=== PATIENT | female | born 1980 | race Caucasian/White ===

== ENCOUNTER 2017-04-05 18:46 | Emergency (ER) | payer SELFPAY ==
[~2017-04-05] VITALS: Ht 144.8 cm; Wt 45.4 kg
--- NOTE | 2017-04-05 22:47 | NUR ---
ASSUMED D/C CARE ONLY AT THIS TIME. PT D/C BY PA. Patient discharged to home in stable condition. Denies any sx's at this time. Written and verbal after care instructions given. Patient verbalizes understanding of instruction. Ambulatory with a steady gait
[2017-04-05 22:49] VITALS: BP 129/77
== END 2017-04-05 22:50 | disposition home or self-care (01) ==
LOC: ER 18:50
DX: F10.129 Alcohol abuse with intoxication, unspecified (principal); M25.561 Pain in right knee; M25.562 Pain in left knee; R41.82 Altered mental status, unspecified; Z59.0 Homelessness
CPT/HCPCS: 70450-TC; A4606; Z7610